=== PATIENT | male | born 1965 | race Caucasian/White ===

== ENCOUNTER → 2018-07-28 | Outpatient (CLI) | payer OTHER ==
--- NOTE | 2018-07-28 22:51 | XCELERA REPORT ---
[address] [address] Transthoracic Echocardiogram Report Name: KIRBY STERLING Age: 53 yrs Gender: Male : 1965 Patient Status: Outpatient Patient Location: Study Date: 07/28/2018 03:14 PM Height: 73 in Weight: 240 lb BSA: 2.3 m2 Procedure: A two-dimensional transthoracic echocardiogram with color flow and Doppler was performed. The study was technically difficult with many images being suboptimal in quality. Study Quality: Technically suboptimal. Reason For Study: MURMUR History: MURMUR I25.2 / Coronary Angioplasty Status. Ordering Physician: ANASTACIA ROJAS Performed By: Rainer Hughes Interpretation Summary The left ventricle is normal in size. There is normal left ventricular wall thickness. LV EF is 55 to 60% The left ventricular ejection fraction is within normal limits. Doppler measurements suggest impaired left ventricular relaxation, which is associated with grade I/IV or mild diastolic dysfunction Small area of hypokinesis of the apical anterior wall. There is no thrombus. Cannot assess for ASD,VSD , of PFO. The right atrium is normal. The left atrial size is normal. There is no evidence of mitral valve prolapse. There is no vegetation seen on the mitral valve. There is no mitral valve stenosis. There is a trace amount of mitral regurgitation There is no aortic valvular vegetation. There is no aortic valve stenosis There is no LVOT obstruction. No aortic regurgitation is present. There is no tricuspid stenosis. There is a trace amount of tricuspid regurgitation Cannot assess RVSP due to lack of TR jet. There is no pulmonic valvular stenosis. There is no pulmonic valvular regurgitation. The aortic root is normal size. There is no pericardial effusion. MMode/2D Measurements & Calculations RVDd: 3.1 cm LVIDd: 5.1 cm FS: 24.7 % Ao root diam: 3.0 cm IVSd: 0.91 cm LVIDs: 3.8 cm EDV(Teich): 122.5 ml Ao root area: 7.0 cm2 LVPWd: 0.88 cm ESV(Teich): 62.8 ml LA dimension: 3.9 cm EF(Teich): 48.7 % Doppler Measurements & Calculations MV E max yanick: MV P1/2t max yanick: Ao V2 max: LV V1 max P.5 cm/sec 58.7 cm/sec 113.4 cm/sec 3.7 mmHg MV A max yanick: MV P1/2t: 50.4 msec Ao max PG: LV V1 max: 76.5 cm/sec MVA(P1/2t): 4.4 cm2 5.1 mmHg 96.7 cm/sec MV E/A: 0.74 MV dec slope: 341.3 cm/sec2 MV dec time: 0.18 sec PA V2 max: MV P1/2t-pr_phl: 92.2 cm/sec 50.4 msec PA max P.4 mmHg Left Ventricle The left ventricle is normal in size. There is normal left ventricular wall thickness. LV EF is 55 to 60%. The left ventricular ejection fraction is within normal limits. Doppler measurements suggest impaired left ventricular relaxation, which is associated with grade I/IV or mild diastolic dysfunction. Small area of hypokinesis of the apical anterior wall. There is no thrombus. Cannot assess for ASD,VSD , of PFO. Right Ventricle The right ventricle is not well visualized secondary to technical limitations. Atria The right atrium is normal. The left atrial size is normal. Mitral Valve There is no evidence of mitral valve prolapse. There is no vegetation seen on the mitral valve. There is no mitral valve stenosis. There is a trace amount of mitral regurgitation. Aortic Valve There is no aortic valvular vegetation. There is no aortic valve stenosis. There is no LVOT obstruction. No aortic regurgitation is present. Tricuspid Valve There is no tricuspid stenosis. There is a trace amount of tricuspid regurgitation. Cannot assess RVSP due to lack of TR jet. Pulmonic Valve There is no pulmonic valvular stenosis. There is no pulmonic valvular regurgitation. Great Vessels The aortic root is normal size. Effusions There is no pericardial effusion. : ANASTACIA ROJAS > Anastacia Rojas
== END ==
LOC: SP 14:19
PROVIDERS: ATTEND Specialist
DX: R01.1 Cardiac murmur, unspecified (principal)
CPT/HCPCS: 93306

== ENCOUNTER 2019-09-10 12:04 | Observation (INO) | payer BC, OTHER ==
[2019-09-10] MEDS ORDERED: NITROGLYCERIN 0.4 MG/TAB 25 TAB/BOTTLE ONE (12:39)
[2019-09-10] MEDS ORDERED: NITROGLYCERIN 0.4 MG/TAB 25 TAB/BOTTLE SL STA (12:41)
[2019-09-10] MEDS ORDERED: ASPIRIN 325 MG TABLET PO ONE (12:41)
--- NOTE | 2019-09-10 12:53 | ER Document Report ---
ED Cardiac - General Chief Complaint: Shortness Of Breath Stated Complaint: SHORTNESS OF BREATH, CHILLS, FEVERISH, NAUSEA Time Seen by Provider: 09/10/19 12:29 Primary Care Provider: ALEXUS ROJAS MD [Primary Care Provider] - Follow up as needed Notes: HPI: Patient is a 54-year-old male who states 2 days ago he started to have some intermittent chest "pressure" to the anterior portion of his chest. He states it is intermittent. Not exertional. No other aggravating relieving factors. He does believe he had a subjective fever last night and this morning and took Tylenol on both occasions. Patient denies any radiation to his back. He states a nonproductive cough. No abdominal pain, calf pain or leg swelling, recent trips or travel. Patient states he has been out of all medications despite having a previous stent in his LAD for the last 3 months secondary to cost issues. He does follow-up with a local lecturer in marketing here Dr. Stephenson who he has not seen for an extended period of time. ROS: See HPI All other review of systems reviewed and otherwise negative Reviewed vital signs and nursing note as charted by RN. PHYSICAL EXAM: CONSTITUTIONAL: Alert and oriented and responds appropriately to questions. Well-appearing; well-nourished HEAD: Normocephalic; atraumatic EYES: PERRL; Conjunctivae clear, sclerae non-icteric CARD: Regular rate and rhythm; no murmurs; symmetric distal pulses RESP: Normal chest excursion without splinting or tachypnea; breath sounds clear and equal bilaterally; minimally scattered rhonchi without rales ABD/GI: Normal bowel sounds; non-distended; soft, non-tender; no palpable organomegaly or masses BACK: The back appears normal and is non-tender to palpation EXT: Normal ROM in all joints; non-tender to palpation; no edema SKIN: No acute lesions noted NEURO: CN 2-12 intact; 5/5 bilateral upper and lower extremity strength with sensation intact to light touch PSYCH: The patient's mood and manner are appropriate. Grooming and personal hygiene are appropriate. TRAVEL OUTSIDE OF THE [place] IN LAST 30 DAYS: No - Related Data Allergies/Adverse Reactions: No Known Allergies Allergy (Verified 09/10/19 12:27) Past Medical History - Social History Smoking Status: Current Every Day Smoker Family History: Reviewed & Not Pertinent Patient has homicidal ideation: No Physical Exam - Vital signs Vitals: Temp Pulse Resp BP Pulse Ox 97.5 F 90 20 143/99 H 96 09/10/19 12:31 09/10/19 12:31 09/10/19 12:31 09/10/19 12:09/10/19 12:31 Course - Re-evaluation Re-evalutation: EKG shows a heart rate of 87, normal sinus rhythm, normal axis, no obvious ST elevation or depression Given the above history and physical we will obtain basic laboratory values, coronavirus testing, portable x-ray of the chest, troponin, and reassess. Given the subjective fevers I would like to rule out an obvious infection. I do believe PE and dissection to be unlikely at this moment. I will provide nitroglycerin and reassess the patient's pain. 09/10/19 13:04 Patient's pain is been relieved with 1 nitroglycerin. EKG as recorded above is unremarkable. Awaiting for x-ray of the chest. 09/10/19 13:28 X-ray of the chest as recorded. 09/10/19 13:51 Initial troponin is recorded. Patient is chest pain-free at this time. I have spoken to the lecturer in marketing who believes he can do a Cardiolite stress test. I believe this is a reasonable option. Aspirin has been provided and Nitropaste is on the patient's chest. - Vital Signs Vital signs: Temp Pulse Resp BP Pulse Ox 97.5 F 90 20 143/99 H 96 09/10/19 12:34 09/10/19 12:31 09/10/19 12:31 09/10/19 12:31 09/10/19 12:31 - Laboratory Result Diagrams: 09/10/19 12:52 09/10/19 12:52 Laboratory results interpreted by me: 09/10/19 12:52 Lymph % (Auto) 10.8 L Eos % (Auto) 10.5 H Discharge - Discharge Clinical Impression: Precordial chest pain Condition: Good Disposition: ADMITTED OBSERVATION Admitting Provider: Trino (Hospitalist) Unit Admitted: Telemetry Referrals: ALEXUS ROJAS MD [Primary Care Provider] - Follow up as needed
[2019-09-10] MEDS ORDERED: NITROGLYCERIN 2% OINTMENT 1 GM PACKET TP ONE (13:04)
[2019-09-10 13:05] LABS: ABSOLUTE BASOPHILS # (AUTO) 0.1 10^3/uL (0.0-0.2); ABSOLUTE EOSINOPHILS # (AUTO) 0.6 10^3/uL (0.0-0.6); ABSOLUTE LYMPHOCYTES (AUTO) 0.7 10^3/uL (0.5-4.7); ABSOLUTE MONOCYTES (AUTO) 0.6 10^3/uL (0.1-1.4); ABSOLUTE NEUT (AUTO) 4.1 10^3/uL (1.7-8.2); BASOPHILS % (AUTO) 1.3 % (0-2); EOSINOPHILS % (AUTO) 10.5 % (0-6); HEMOGLOBIN 16.2 g/dL (13.5-17.0); LYMPHOCYTES % (AUTO) 10.8 % (13-45); MEAN CORPUSCULAR HEMOGLOBIN 33.4 pg (27.0-33.4); MEAN CORPUSCULAR HGB CONC 34.5 g/dL (32.0-36.0); MEAN CORPUSCULAR VOLUME 97 fl (80-97); MONOCYTES % (AUTO) 9.4 % (3-13); PLATELET COUNT 193 10^3/uL (150-450); RED BLOOD COUNT 4.86 10^6/uL (4.35-5.55); RED CELL DISTRIBUTION WIDTH 13.6 % (11.5-14.0); TOTAL CELLS COUNTED % (AUTO) 100 %
--- NOTE | 2019-09-10 13:13 | RADIOLOGY REPORT (SQ) ---
EXAM DESCRIPTION: CHEST SINGLE VIEW IMAGES COMPLETED DATE/TIME: 09/10/2019 12:54 pm REASON FOR STUDY: 6; chest pain COMPARISON: None. EXAM PARAMETERS: NUMBER OF VIEWS: One view. TECHNIQUE: Single frontal radiographic view of the chest acquired. RADIATION DOSE: NA LIMITATIONS: None. FINDINGS: LUNGS AND PLEURA: Bibasilar atelectasis. Lungs otherwise well inflated and clear. No ple ural effusion or pneumothorax. MEDIASTINUM AND HILAR STRUCTURES: No masses. Contour normal. HEART AND VASCULAR STRUCTURES: Heart normal in size. Normal vasculature. BONES: No acute findings. HARDWARE: None in the chest. OTHER: No other significant finding. IMPRESSION: Bibasilar atelectasis TECHNICAL DOCUMENTATION: JOB ID: [id number] 2010 [employer]- All Rights Reserved Reading location - IP/workstation name: [email or web address]
[2019-09-10 13:22] LABS: ANION GAP 7 (5-19); BLOOD UREA NITROGEN 12 mg/dL (7-20); CALCIUM 9.8 mg/dL (8.4-10.2); CARBON DIOXIDE 28 mmol/L (22-30); CHLORIDE 104 mmol/L (98-107); GLUCOSE 103 mg/dL (75-110); POTASSIUM 4.6 mmol/L (3.6-5.0)
[2019-09-10] MEDS ORDERED: IPRATROPIUM/ALBUTEROL 0.5-2.5 MG/3 ML AMPUL NEB PRN (14:58)
[2019-09-10] MEDS ORDERED: TEMAZEPAM 7.5 MG CAPSULE PO PRN (14:58)
[2019-09-10] MEDS ORDERED: ACETAMINOPHEN 325 MG TABLET PO PRN (14:58)
[2019-09-10] MEDS ORDERED: MAGNESIUM HYDROXIDE SUSP 30 ML UDCUP PO PRN (14:58)
[2019-09-10] MEDS ORDERED: PROMETHAZINE HCL INJ 25 MG/1 ML VIAL IV PRN (14:58)
--- NOTE | 2019-09-10 14:58 | PDOC H&P ---
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 Because no insurance he has been out of all of his medications for approximately 3 months. States that 2 days ago he began feeling discomfort in his chest. This was accompanied by nausea. There was no diaphoresis. Did state in the chest. He describes it as bilateral. Yesterday however he describes the discomfort as someone sitting on his chest. He is also reporting nausea. He still has a chest discomfort today but it was relieved by nitroglycerin. He still has some nausea. He is a patient of Dr. Stephenson but because of no insurance he has not seen Dr. Rojas in a long time. His labs are unremarkable. They only do 1 troponin in the emergency department and this is less than 0.012. He will have serial troponins during his observation admission. I talked to Dr. Owens and we will also order stress test for tomorrow. He will be on a cardiac diet but will be n.p.o. after midnight. We will continue his nitroglycerin and resume antiplatelet and statin therapy as well. Past Medical History Cardiac Medical History: Reports: Myocardial Infarction, Hyperlipidema, Hypertension Pulmonary Medical History: Reports: Chronic Obstructive Pulmonary Disease (COPD) Neurological Medical History: Reports: Migraine GI Medical History: Reports: Gastroesophageal Reflux Disease Past Surgical History Past Surgical History: Reports: Cardiac Catheterization Social History Information Source: Patient Lives with: Family Smoking Status: Current Every Day Smoker Electronic Cigarette use?: No Frequency of Alcohol Use: None Hx Recreational Drug Use: No Hx Prescription Drug Abuse: No - Advance Directive Resuscitation Status: Full Code Surrogate healthcare decision maker:: Significant other Breanna Alicia Family History Family History: Reviewed & Not Pertinent Parental Family History Reviewed: Yes Children Family History Reviewed: Yes Sibling(s) Family History Reviewed.: Yes Medication/Allergy Allergies/Adverse Reactions: No Known Allergies Allergy (Verified 09/10/19 12:27) Review of Systems All systems: reviewed and no additional remarkable complaints except as stated Constitutional: PRESENT: fatigue Cardiovascular: PRESENT: chest pain, dyspnea on exertion Respiratory: PRESENT: dyspnea Gastrointestinal: PRESENT: nausea Musculoskeletal: PRESENT: other - Left knee pain Physical Exam Vital Signs: Temp Pulse Resp BP Pulse Ox 97.5 F 90 16 125/77 97 09/10/19 12:34 09/10/19 12:31 09/10/19 14:01 09/10/19 14:00 09/10/19 14:01 Intake & Output 09/09/19 09/10/19 09/11/19 06:59 06:59 06:59 Weight 110 kg General appearance: PRESENT: cooperative, mild distress, well-developed Head exam: PRESENT: atraumatic, normocephalic Eye exam: PRESENT: conjunctiva pink, EOMI. ABSENT: scleral icterus Ear exam: PRESENT: normal external ear exam. ABSENT: bleeding, drainage Mouth exam: PRESENT: moist, neck supple, tongue midline Neck exam: PRESENT: full ROM. ABSENT: JVD, lymphadenopathy Respiratory exam: PRESENT: rales - Faint rales at bases, symmetrical, unlabored. ABSENT: accessory muscle use, prolonged expiratory phas, rhonchi, tachypnea, wheezes Cardiovascular exam: PRESENT: RRR, +S1, +S2, systolic murmur - Faint 1/6. ABSENT: diastolic murmur, irregular rhythm, tachycardia Pulses: PRESENT: normal radial pulses, +1 pedal pulses bilateral GI/Abdominal exam: PRESENT: normal bowel sounds, soft, tenderness - Slightly tender in the left lower quadrant. ABSENT: distended, guarding, rebound Rectal exam: PRESENT: deferred Gentrourinary exam: ABSENT: indwelling catheter Extremities exam: ABSENT: joint swelling, pedal edema Musculoskeletal exam: PRESENT: ambulatory, full ROM, normal inspection. ABSENT: deformity Neurological exam: PRESENT: alert, awake, oriented to person, oriented to place, oriented to time, oriented to situation, CN II-XII grossly intact. ABSENT: altered, motor sensory deficit Psychiatric exam: PRESENT: flat affect. ABSENT: agitated, anxious Focused psych exam: ABSENT: delusional, paranoid, restlessness Skin exam: PRESENT: dry, normal color, warm. 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 He mentions " maker "and so typically this is the left main coronary artery. This happened in [place]. He has not been on any of his medications for the last 3 months because he states he c annot afford them and he has no insurance but he also has not seen Dr. Rojas. His chest pressure was relieved with nitroglycerin. I am going to resume his Brilinta as well as a baby aspirin daily. I am also going to add atorvastatin 80 mg daily metoprolol. I will place him on low-dose losartan as well. (2) Nausea Is this a current diagnosis for this admission?: Yes Plan: [birth year]/1929 Will be placed on Pepcid 20 mg twice daily and have Phenergan available as needed. (3) Dyspnea on exertion Is this a current diagnosis for this admission?: Yes Plan: 09/10/2019 Reports a history of COPD and he still smokes. Duo nebs are ordered if needed. He certainly could be short of breath for cardiac reasons but it is hard to ignore a history of COPD in a current smoker. Nicotine patch will be available if needed. (4) Chronic diastolic heart failure Is this a current diagnosis for this admission?: Yes Plan: 09/10/2019 The patient had an echocardiogram last year. It revealed a normal ejection fraction however there was grade 1 diastolic dysfunction. The right ventricular systolic pressure could not be estimated. The patient is asymptomatic. He has no peripheral edema. We will hold on diuretic therapy at this time. We will start the patient on an angiotensin receptor isiah (losartan) - Time Time Spent with patient: 35 or more minutes Smoking Cessation Education: 3 to 10 minutes Medications reviewed and adjusted accordingly: Yes Anticipated discharge: Home Within: within 48 hours
[2019-09-10] MEDS ORDERED: TICAGRELOR 90 MG TABLET ONE (17:21)
[2019-09-10] MEDS: NITROGLYCERIN 2% OINTMENT 1 GM PACKET TP SCH (17:41)
[2019-09-10] MEDS: METOPROLOL SUCCINATE 25 MG TAB.SR.24H PO SCH ×2 (17:41→21:04)
[2019-09-10] MEDS: TICAGRELOR 90 MG TABLET PO SCH (17:58)
[2019-09-10 19:55] LABS: CREATINE KINASE MB 0.72 ng/mL (<4.55)
[2019-09-10 19:57] LABS: TROPONIN I < 0.012 ng/mL
[2019-09-10] MEDS: FAMOTIDINE 20 MG TABLET PO SCH (21:02)
[2019-09-10] MEDS: HEPARIN SOD (PORCINE) 5,000 UNIT/ML 1 ML VIAL SUBCUT SCH (21:03)
--- NOTE | 2019-09-10 21:17 | EKG REPORT ---
SEVERITY:- ABNORMAL ECG - SINUS RHYTHM PROBABLE ANTEROSEPTAL INFARCT, OLD : Confirmed by: Qasim Qiu MD 10-Sep-2019 21:15:56
[2019-09-10] MEDS ORDERED: ASPIRIN 81 MG TABLET, ENT COATED PO SCH (22:00)
[2019-09-10] MEDS ORDERED: ATORVASTATIN CALCIUM 80 MG TABLET PO SCH (22:00)
[2019-09-11 01:26] LABS: TROPONIN I < 0.012 ng/mL
[2019-09-11] MEDS: NITROGLYCERIN 2% OINTMENT 1 GM PACKET TP SCH ×4 (02:56→17:26)
[2019-09-11] MEDS: HEPARIN SOD (PORCINE) 5,000 UNIT/ML 1 ML VIAL SUBCUT SCH ×2 (05:43→15:10)
[2019-09-11 08:03] LABS: CREATINE KINASE MB 0.73 ng/mL (<4.55)
[2019-09-11 08:12] LABS: TROPONIN I < 0.012 ng/mL
--- NOTE | 2019-09-11 08:57 | PDOC PROGRESS REPORT ---
Subjective Progress Note for:: 09/11/19 Subjective:: No pain today. The patient in fact has been sitting up in a chair already. He denies any shortness of breath. He is getting ready to go for his stress test. Reason For Visit: ANGINA CORONARY ARTERY DISEASE Physical Exam Vital Signs: Temp Pulse Resp BP Pulse Ox 97.9 F 78 18 126/60 H 98 09/11/19 03:20 09/11/19 07:00 09/11/19 03:20 09/11/19 03:20 09/11/19 03:20 Intake & Output 09/10/19 09/11/19 09/12/19 06:59 06:59 06:59 Intake Total 480 Balance 480 Weight 110 kg Results Laboratory Results: 09/10/19 12:52 09/10/19 12:52 09/10/19 09/10/19 09/10/19 12:52 12:52 12:52 WBC 6.0 RBC 4.86 Hgb 16.2 Hct 47.0 MCV 97 MCH 33.4 MCHC 34.5 RDW 13.6 Plt Count 193 Seg Neutrophils % 68.0 Sodium 139.0 Potassium 4.6 Chloride 104 Carbon Dioxide 28 Anion Gap 7 BUN 12 Creatinine 0.86 Est GFR ( Amer) > 60 Glucose 103 Calcium 9.8 Magnesium 2.5 H 09/10/19 09/10/19 09/10/19 12:52 19:10 19:10 Creatine Kinase 75 CK-MB (CK-2) 0.72 Troponin I < 0.012 < 0.012 09/11/19 09/11/19 09/11/19 00:39 00:39 07:12 Creatine Kinase 69 69 CK-MB (CK-2) 0.70 Troponin I < 0.012 09/11/19 07:12 Creatine Kinase CK-MB (CK-2) 0.73 Troponin I < 0.012 Impressions: Chest X-Ray 09/10/19 12:29 IMPRESSION: Bibasilar atelectasis Assessment and Plan - Diagnosis (1) Angina at rest Is this a current diagnosis for this admission?: Yes (2) 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
[2019-09-11] MEDS ORDERED: LOSARTAN POTASSIUM 25 MG TABLET PO SCH (10:00)
[2019-09-11] MEDS: FAMOTIDINE 20 MG TABLET PO SCH (11:05)
[2019-09-11] MEDS: TICAGRELOR 90 MG TABLET PO SCH ×2 (11:05→17:32)
[2019-09-11] MEDS: METOPROLOL SUCCINATE 25 MG TAB.SR.24H PO SCH (11:05)
[2019-09-11] MEDS ORDERED: REGADENOSON INJ 0.4 MG/5 ML DISP.SYRIN IV ONE (14:20)
--- NOTE | 2019-09-11 16:20 | PDOC DISCHARGE SUMMARY ---
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 - Additional Information Resuscitation Status: Full Code Discharge Diet: Cardiac Discharge Activity: Activity As Tolerated Referrals: ALEXUS ROJAS MD [Primary Care Provider] - Follow up as needed (sticker in book) Prescriptions: Losartan Potassium [Cozaar 25 mg Tablet] 25 mg PO DAILY 14 Days #14 tablet Isosorbide Mononitrate [Imdur 30 mg Tablet.er] 30 mg PO DAILY #14 tab.er.24h Atorvastatin Calcium [Lipitor 80 mg Tablet] 80 mg PO QHS 14 Days #14 tablet Nitroglycerin 0.4 mg SL Q5MX3 PRN #1 bottle PRN Reason: For Chest Pain Clopidogrel Bisulfate [Plavix 75 mg Tablet] 75 mg PO DAILY #14 tablet Metoprolol Succinate [Toprol Xl 25 mg Tab.sr] 25 mg PO Q12 #28 tab.sr.24h Home Medications: Acetaminophen [Acetaminophen Extra Strength] 1,000 mg PO Q6HP PRN 09/11/19 Aspirin [Ecotrin 81 mg EC Tablet] 81 mg PO QHS tabec 09/11/19 Atorvastatin Calcium [Lipitor 80 mg Tablet] 80 mg PO QHS 14 Days #14 tablet 09/11/19 Clopidogrel Bisulfate [Plavix 75 mg Tablet] 75 mg PO DAILY #14 tablet 09/11/19 Esomeprazole Magnesium [Nexium] 20 mg PO QAM 09/11/19 Isosorbide Mononitrate [Imdur 30 mg Tablet.er] 30 mg PO DAILY #14 tab.er.24h 09/11/19 Losartan Potassium [Cozaar 25 mg Tablet] 25 mg PO DAILY 14 Days #14 tablet 09/11/19 Metoprolol Succinate [Toprol Xl 25 mg Tab.sr] 25 mg PO Q12 #28 tab.sr.24h 09/11/19 Nitroglycerin 0.4 mg SL Q5MX3 PRN #1 bottle 09/11/19 History of Present Illiness History of Present Illness: EFRAIN STERLING is a 54 year old male with a 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 Because no insurance he has been out of all of his medications for approximately 3 months. States that 2 days ago he began feeling discomfort in his chest. This was accompanied by nausea. There was no diaphoresis. Did state in the chest. He describes it as bilateral. Yesterday however he describes the discomfort as someone sitting on his chest. He is also reporting nausea. He still has a chest discomfort today but it was relieved by nitroglycerin. He still has some nausea. He is a patient of Dr. Stephenson but because of no insurance he has not seen Dr. Rojas in a long time. His labs are unremarkable. They only do 1 troponin in the emergency department and this is less than 0.012. He will have serial troponins during his observation admission. I talked to Dr. Owens and we will also order stress test for tomorrow. He will be on a cardiac diet but will be n.p.o. after midnight. We will continue his nitroglycerin and resume antiplatelet and statin therapy as well. Hospital Course Hospital Course: The patient had an unremarkable hospital course. With the addition of nitrates his chest discomfort went away. On his stress test he had a fixed apical defect likely related to his previous infarct. There is no reversible ischemia. After reviewing the results with Dr. Rojas the patient will discharge home and follow-up with him in his office. Physical Exam Vital Signs: Temp Pulse Resp BP Pulse Ox 97.5 F 75 18 121/64 98 09/11/19 11:19 09/11/19 14:00 09/11/19 11:19 09/11/19 11:19 09/11/19 11:19 Intake & Output 09/10/19 09/11/19 09/12/19 06:59 06:59 06:59 Intake Total 480 836 Balance 480 836 Weight 110 kg General appearance: PRESENT: no acute distress Respiratory exam: PRESENT: clear to auscultation ryan, symmetrical, unlabored. ABSENT: rales, rhonchi, tachypnea, wheezes Cardiovascular exam: PRESENT: RRR, +S1, +S2, systolic murmur. ABSENT: irregular rhythm, tachycardia GI/Abdominal exam: PRESENT: normal bowel sounds, soft. ABSENT: distended, tenderness Results Laboratory Results: WBC 6.0 10^3/uL (4.0-10.5) 09/10/19 12:52 RBC 4.86 10^6/uL (4.35-5.55) 09/10/19 12:52 Hgb 16.2 g/dL (13.5-17.0) 09/10/19 12:52 Hct 47.0 % (37.9-51.0) 09/10/19 12:52 MCV 97 fl (80-97) 09/10/19 12:52 MCH 33.4 pg (27.0-33.4) 09/10/19 12:52 MCHC 34.5 g/dL (32.0-36.0) 09/10/19 12:52 RDW 13.6 % (11.5-14.0) 09/10/19 12:52 Plt Count 193 10^3/uL (150-450) 09/10/19 12:52 Lymph % (Auto) 10.8 % (13-45) L 09/10/19 12:52 Parke % (Auto) 9.4 % (3-13) 09/10/19 12:52 Eos % (Auto) 10.5 % (0-6) H 09/10/19 12:52 Baso % (Auto) 1.3 % (0-2) 09/10/19 12:52 Absolute Neuts (auto) 4.1 10^3/uL (1.7-8.2) 09/10/19 12:52 Absolute Lymphs (auto) 0.7 10^3/uL (0.5-4.7) 09/10/19 12:52 Absolute Monos (auto) 0.6 10^3/uL (0.1-1.4) 09/10/19 12:52 Absolute Eos (auto) 0.6 10^3/uL (0.0-0.6) 09/10/19 12:52 Absolute Basos (auto) 0.1 10^3/uL (0.0-0.2) 09/10/19 12:52 Seg Neutrophils % 68.0 % (42-78) 09/10/19 12:52 Sodium 139.0 mmol/L (137-145) 09/10/19 12:52 Potassium 4.6 mmol/L (3.6-5.0) 09/10/19 12:52 Chloride 104 mmol/L (98-107) 09/10/19 12:52 Carbon Dioxide 28 mmol/L (22-30) 09/10/19 12:52 Anion Gap 7 (5-19) 09/10/19 12:52 BUN 12 mg/dL (7-20) 09/10/19 12:52 Creatinine 0.86 mg/dL (0.52-1.25) 09/10/19 12:52 Est GFR ( Amer) > 60 (>60) 09/10/19 12:52 Est GFR (MDRD) Non-Af > 60 (>60) 09/10/19 12:52 Glucose 103 mg/dL (75-110) 09/10/19 12:52 Calcium 9.8 mg/dL (8.4-10.2) 09/10/19 12:52 Magnesium 2.5 mg/dL (1.6-2.3) H 09/10/19 12:52 Creatine Kinase 69 U/L (55-170) 09/11/19 07:12 CK-MB (CK-2) 0.73 ng/mL (<4.55) 09/11/19 07:12 Troponin I < 0.012 ng/mL 09/11/19 07:12 SARS-CoV-2 (PCR) NEGATIVE (NEGATIVE) 09/10/19 13:05 09/10/19 09/10/19 09/11/19 12:52 19:10 00:39 CK-MB (CK-2) 0.72 0.70 Troponin I < 0.012 < 0.012 < 0.012 09/11/19 07:12 CK-MB (CK-2) 0.73 Troponin I < 0.012 Impressions: Chest X-Ray 09/10/19 12:29 IMPRESSION: Bibasilar atelectasis Plan Health Concerns: Compliance. Patient has no insurance and was not able to continue his medications for the last 4 months. I have tried to utilize generic medications in an effort to be more of portable to the patient. Plan of Treatment: Continue current medication regimen and follow-up with Dr. Rojas. Goals: Better compliance with heart healthy lifestyle modification Time Spent: Greater than 30 Minutes Stroke Is this a Stroke Patient?: No Acute Heart Failure - Is this a Heart Failure Patient?: No
[2019-09-11 17:20] VITALS: BP 129/73
--- NOTE | 2019-09-11 22:26 | EKG REPORT ---
SEVERITY:- ABNORMAL ECG - SINUS RHYTHM ANTERIOR INFARCT, OLD : Confirmed by: Felicity Galan 11-Sep-2019 22:26:36
--- NOTE | 2019-09-11 22:33 | DRAGON STRESS TEST REPORT ---
Intravenous Lexiscan Cardiolite stress test using single photon emmision computerized tomography. Date of procedure: 09/11/2019. Ordering Provider: Dr. Jameson.Patient's status: Inpatient Indication: Chest pain. In a patient with a prior history of coronary artery disease with stenting the left anterior descending artery.. Coronary risk factors: Age, hypertension, and dyslipidemia. Resting EKG: Sinus rhythm. Normal EKG. Stress EKG: No changes of ischemia. The patient has no chest pain or discomfort, and there was no arrhythmias seen. Reason for termination: Protocol. Conclusions: Normal EKG and hemodynamic response to IV Lexiscan. Nuclear data: At rest the patient was given 14.56 millicuries of technetium 99m sestamibi injected intravenously. As per protocol rest non gated SPECT images were obtained. Subsequently the patient was given intravenous Lexiscan at a dose of 0.4 mg in 5 mL intravenously, followed by flush with normal saline. Subsequently the stress dose of 45.4 millicuries of technetium 99m sestamibi was injected intravenously. As per protocol stress gated images were obtained. Nuclear interpretation: Review of images showed that there is a small area in the left ventricle apex with decreased palpation in the resting and stress images. This small area has decreased motion contraction and thickening consistent with a small prior HI. The rest of the segments of the myocardium had normal perfusion at rest, and normal perfusion post stress with IV Lexiscan. All segments of the myocardium had normal motion, contraction, and thickening by gated study. T. I D. ratio was normal at 1.08. There is no transient ischemic dilatation of the left ventricle. Computer read rest, and stress left ventricular ejection fraction were 41 %, and 42 %, respectively. Visually both the stress and rest ejection fractions were normal, and greater than 55%. Conclusion: 1. There is no scintigraphic evidence of Lexiscan induced myocardial ischemia. 2. There is scintigraphic evidence of myocardial infarction / scar involving a small area of the left ventricular apex.. Recommendations: 1. Aggressive treatment of coronary artery disease. 2. Aggressive risk factor modification, and treating the underlying co- morbidities. 3. Check echo for LV ejection fraction correlation 4. Recommend close outpatient cardiology follow-up. [facility]
== END 2019-09-11 17:45 | disposition home or self-care (01) ==
LOC: ER 12:04 → EH 14:08 → 3W 16:45 → 3N 09-11 05:31
PROVIDERS: ADMIT Hospitalist; ATTEND Hospitalist
DX: I25.118 Atherosclerotic heart disease of native coronary artery with other forms of angina pectoris (principal); R11.0 Nausea; R06.00 Dyspnea, unspecified; I50.32 Chronic diastolic (congestive) heart failure; I11.0 Hypertensive heart disease with heart failure; E78.5 Hyperlipidemia, unspecified; I25.2 Old myocardial infarction; F17.200 Nicotine dependence, unspecified, uncomplicated; Z95.5 Presence of coronary angioplasty implant and graft; Z59.7 Insufficient social insurance and welfare support; Z91.120 Patient's intentional underdosing of medication regimen due to financial hardship; Z03.818 Encounter for observation for suspected exposure to other biological agents ruled out
CPT/HCPCS: 93005 ×2; 99285; 36415 ×2; 82553 ×2; 82550 ×2; 83735; 85025; 87635; 80048; 84484 ×2; 93017; 71045; 78452; 93010 ×2; G0378 ×3; A9500; J2785; J1644 ×2; J3490 ×4; Q9969; C9803